=== PATIENT | male | born 1945 | race Caucasian/White ===

== ENCOUNTER 2016-08-16 23:51 | Observation (INO) | payer OTHER ==
[~2016-08-16] VITALS: Ht 190.5 cm; Wt 120.2 kg
--- NOTE | ~2016-08-16 | O ---
[facility] [place] [address] OPERATIVE REPORT Name: SADE MAYER Room #: 537-P [facility] Baltazar#: [id number] Admission: 08/17/16 Attend Phys: Ivonne Snider MD, Discharge: 08/18/16 Date of : 49 Report #: [id number] THIS REPORT FOR: //name// CC: Pasquale Snider DATE OF SERVICE: 08/17/2016 PREOPERATIVE DIAGNOSIS: Acute appendicitis. POSTOPERATIVE DIAGNOSIS: Acute appendicitis. PROCEDURE: Laparoscopic appendectomy. ANESTHESIA: General endotracheal anesthesia. ESTIMATED BLOOD LOSS: 5 mL. IV FLUIDS: 1200 mL of Crystalloid. SPECIMENS TO PATHOLOGY: Appendix. FINDINGS: Acute appendicitis, nonperforated, intense inflammatory response in the right lower quadrant. DRAINS PLACED: None. INDICATION FOR PROCEDURE: The patient is a very pleasant 70-year-old gentleman with history of lower abdominal pain. Workup and clinical exam were consistent with acute appendicitis. General surgery was therefore consulted for surgical intervention. Detailed discussion of the risks and benefits of appendectomy was held with the patient. All questions were answered to the patient's satisfaction. Written informed consent was obtained. DESCRIPTION OF PROCEDURE: The patient was brought to the operating room and placed in a supine position. Timeout was taken to verify the patient's identity and to plan the procedure. SCDs were in place on the lower extremities bilaterally. Preoperative antibiotics were administered. Anesthesia was induced. The patient was intubated. Abdomen was sterilely prepped and draped in standard fashion. Left lower quadrant incision was made after local anesthetic had been infiltrated. A 5-mm direct visual insertion technique was utilized with a 5 mm 0-degree laparoscope. Pneumoperitoneum was created. Inspection of the viscera showed that no injury had occurred upon entry. A 12-mm supraumbilical port was placed under direct visualization and a 5-mm suprapubic port placed under direct visualization after local anesthetic had [address] [address] OPERATIVE REPORT Name: SADE MAYER Konrad [id number] Admission: 08/17/16 Attend Phys: Ivonne Snider MD, Discharge: 08/18/16 Date of : 49 Report #: [id number] been infiltrated into each of these sites. The patient was placed in the Trendelenburg, right side up position. Right lower quadrant structures were examined. The appendix was noted to be significantly inflamed with adhesion of small bowel and omentum around this region. This was carefully dissected apart with blunt dissector and Sonicision energy device. The appendix was then identified and base of the appendix was carefully dissected out. A window was created in the base of the mesoappendix. The mesoappendix was also noted to be considerably edematous and thickened. The base of the appendix was transected with a linear cutting stapler with an [place] 45-mm blue load 1 firing. The mesoappendix was then transected using a 45-mm white load linear cutting stapler. The appendix was then passed into an EndoCatch bag and removed from the 12-mm port site. Reinspection of the cecum showed that the transection site was well intact. There was scant oozing at one edge and this was controlled using Crow. ____ was draped over this site. It should also be noted that prior to placement of the Crow, the right lower quadrant was irrigated with sterile saline and suctioned clear. Camera was switched to a 5-mm 30-degree laparoscope and the 12-mm port was removed. The fascia at the supraumbilical site was closed using [id number] 0 PDS suture under direct visualization with a PMI suture passer. Reinspection of the right lower quadrant structures were again examined and hemostasis was again verified. At this point, pneumoperitoneum was relieved. The 5 mm ports were extracted carefully. Local anesthetic was further infiltrated into each of the 3 port sites. Skin was closed at each of the 3 sites using 4-0 Monocryl subcuticular stitches. Dermabond was applied superficially at each of these 3 sites. At this point, the case was ended. All instrumentation had been extracted and accounted for. All counts were correct per nurse report. The patient was extubated and taken to the postoperative care unit in stable condition. By: [id number] Morgan Brady MD /aern
--- NOTE | ~2016-08-16 | S ---
[facility] [place] [address] SURGICAL PATH RPT PROCEDURE Name: SADE MAYER Konrad Room #: 537-P [facility] Nito Ledesma#: [id number] Admission: 08/17/16 Date of : 49 Discharge: 08/18/16 Report #: [id number] Path Case #: [id number] PATHOLOGY REPORT COLLECTION DATE: 08/17/2016 RECEIVED DATE: 08/18/2016 SUBMITTING PHYS: Dr. Morgan Brady OTHER PHYS: Dr. Pasquale Snider SPECIMEN(S) RECEIVED: A.Appendix * * * * * * * * * * * * FINAL DIAGNOSIS: Appendix, "appendix", appendectomy: - Acute suppurative appendicitis with acute inflammation extending into the periappendiceal fat with microabscess formation. (SHA:[facility]; d/t: 08/21/2016) PATHOLOGIST: Brad Crum M.D. REPORT ELECTRONICALLY SIGNED BY: Brad Crum M.D. DATE/TIME: 08/21/2016 14:13 * * * * * * * * * * * * GROSS PATHOLOGY: Received in formalin labeled "Moreno Sade and appendix," is an appendix measuring 6.2 cm in length and 1.2 cm in diameter with a moderate amount of attached mesoappendix. The serosal surface is pink-bill to dark red, dull, and displays multiple adhesions and white-bill exudate. Sectioning reveals a 0.8 cm in diameter lumen filled with red-bill and friable soft material. The mucosa is dark red and granular. The wall is uniform and measures 0.2 cm in thickness. Lokie Engineer sections are submitted as follows: A1 bisected distal tip and proximal resection margin A2-A3 sections from body of appendix (TTL; 08/18/2016) CLINICAL HISTORY: Appendicitis INITIAL CPT CODE(S): A; 34895 Professional services performed by [facility] at [facility] [address] [place] [address] SURGICAL PATH RPT PROCEDURE Name: MORENOSADE Konrad Room #: 537-P [facility] M.R.#: [id number] Admission: 08/17/16 Date of : 49 Discharge: 08/18/16 Report #: [id number] Path Case #: [id number] [address], [place] [address] Technical services performed by [facility] at [address] [place] [address], [facility] [address] [address]. [facility] [address] [place] [address] PHONE: [phone] DIRECTOR: Ricci Schwartz M.D. * * * END OF REPORT * * *
--- NOTE | ~2016-08-16 | HC ---
[facility] [place] [address] CONSULTATION Name: SADE MAYER Room #: 537-P [facility]#: [id number] Admission: 08/17/16 Attend Phys: Ivonne Snider MD, Discharge: Date of : 49 Report #: [id number] THIS REPORT FOR: //name// CC: Pasquale Snider DATE OF SERVICE: 08/17/2016 CHIEF COMPLAINT: Abdominal pain. HISTORY OF PRESENT ILLNESS: The patient was admitted through the Emergency Department. The patient is a very pleasant 70-year-old male patient with history of right lower abdominal pain which began yesterday evening, this was associated with nausea and dry heaves. His last bowel movement was yesterday morning. He has not passed flatus since that time. No melena or hematochezia. The patient does still have an appetite. He denied any fevers, chills or unwanted weight loss lately, no focal weakness or numbness. The pain became more pronounced and localized in the right lower quadrant throughout the night. PAST MEDICAL HISTORY: Positive for papillary thyroid cancer, status post total thyroidectomy with iodine radiation ablation greater than 20 years ago. He is now clinically hypothyroid and he is on Synthroid 200 mcg daily. MEDICATIONS: Synthroid 200 mcg daily, fluticasone, cetirizine, Lipitor, azelastine, losartan, aspirin 81 mg daily. ALLERGIES: No known drug allergies. SOCIAL HISTORY: Negative for tobacco or drug use, social ETOH only. REVIEW OF SYSTEMS: CONSTITUTIONAL: Negative for fevers, chills or unwanted weight loss. OCULAR: No diplopia or visual change. HEENT: Positive for seasonal allergies. Negative for dysphagia or odynophagia. Positive for history of thyroidectomy. PULMONARY: No productive cough, no shortness of breath. CARDIOVASCULAR: No chest pain or palpitation. GASTROINTESTINAL: Positive for abdominal pain, nausea and vomiting as described above. GENITOURINARY: Negative for dysuria, hesitancy, or urgency. MUSCULOSKELETAL: No back pain or joint swelling. CUTANEOUS: Negative for skin lesions or rashes. NEUROLOGIC: No focal weakness or numbness. ENDOCRINE: Positive for clinical hypothyroidism, status post thyroidectomy with iodine ablation. No heat or cold intolerance when he is on his medication. [address] [address] CONSULTATION Name: SADE MAYER Room #: 537-P [facility] Nito Ledesma#: [id number] Admission: 08/17/16 Attend Phys: Ivonne Snider MD, Discharge: Date of : 49 Report #: [id number] PHYSICAL EXAMINATION: GENERAL: On exam, the patient is afebrile and nontoxic. He is normotensive. He is awake, alert and oriented, does give appropriate history. He is fluent without dysarthria. HEAD: Atraumatic and normocephalic, well-healed thyroidectomy incision. NECK: Supple, without any obvious lymphadenopathy. Cranial nerves are intact and symmetric bilateral. Mucosae are pink and moist. No icterus is appreciated. LUNGS: Clear to auscultation bilateral. HEART: Regular without murmur. No jugular venous distention. ABDOMEN: Soft and nondistended. He is quite tender to palpation in the right lower quadrant with guarding. No abdominal surgical scars are appreciated. No obvious hernias are appreciated. EXTREMITIES: Without clubbing, cyanosis or edema. Extremities are well perfused with intact distal pulses. NEUROLOGIC: No focal deficits. The patient moves all extremities without focal weakness. PSYCHIATRIC: Shows normal mood and affect. LABORATORY DATA: Reviewed. Urinalysis in the Emergency Department was unremarkable. Complete metabolic profile showed a glucose of 126, lipase of 133, total bilirubin of 1, alkaline phosphatase 51, AST 26, ALT of 32, albumin of 4.1, creatinine of 1.1. Complete blood count showed a leukocytosis of 12.7, hemoglobin 13.6, platelets of 204, neutrophils 86%. CT scan of the abdomen and pelvis with contrast is reviewed along with the images. This demonstrates a dilated appendix, which is markedly distended and edematous, small amount of adjacent inflammation, no obvious free fluid or free air, greatest dimension of 14 mm per the appendix, cecum with moderate stool, mild diverticula without inflammation noted in the descending colon and small umbilical hernia was also noted. IMPRESSION AND PLAN: 1. A 70-year-old male patient with acute appendicitis. The patient has been admitted to General Surgery team. Plan to keep the patient on IV antibiotics, namely Zosyn 3.375 g scheduled q. 6 hours. 2. Plan for laparoscopic appendectomy today. Detailed discussion of risks and benefits of surgical intervention held with the patient and all questions were answered to the patient's satisfaction. Written informed consent was obtained. 3. Consultation very much appreciated. By: [id number] Morgan Brady MD /nt
[2016-08-16 23:52] VITALS: BP 120/75
[2016-08-17] MEDS ORDERED: AZELASTINE137 MCG/0. NS (00:06)
[2016-08-17] MEDS ORDERED: LEVOTHYROXINE0.2 M1 PO (00:06)
[2016-08-17] MEDS ORDERED: COZAAR 50 MG TA50 M2 PO (00:07)
[2016-08-17] MEDS ORDERED: FLONASE 0.05%50 MCG NASAL (00:07)
[2016-08-17] MEDS ORDERED: ASPIR 8181 MG PO (00:08)
[2016-08-17 00:24] LABS: HEMATOCRIT 38.9 % (42.0-52.0); HEMOGLOBIN 13.6 gm/dL (14.0-18.0); MCH 32.7 pg (26.0-34.0); MCV 93.4 fL (80.0-100.0); PLATELET COUNT 204 thou/uL (150-400); RBC 4.16 mil/uL (4.50-6.00); RDW 13.4 % (10.5-14.5); WBC 12.7 thou/uL (4.0-11.0)
[2016-08-17 00:33] LABS: MANUAL DIFF YES
[2016-08-17 00:33] LABS: URINE BILIRUBIN NEGATIVE (Negative); URINE BLOOD NEGATIVE (Negative); URINE COLOR YELLOW; URINE GLUCOSE-RANDOM* NEGATIVE (Negative); URINE KETONES NEGATIVE (Negative); URINE LEUKOCYTES-REFLEX NEGATIVE (Negative); URINE PROTEIN (DIPSTICK) NEGATIVE (Negative); URINE UROBILINOGEN 0.2 E.U./dl (0.2-1.0)
[2016-08-17 00:45] LABS: ALBUMIN 4.1 g/dL (3.4-5.0); CALCIUM 8.7 mg/dL (8.5-10.1); CREATININE 1.1 mg/dL (0.7-1.3); TOTAL PROTEIN 6.9 g/dL (6.4-8.2)
[2016-08-17 01:48] LABS: ABSOLUTE NEUTROPHILS 10.9 thou/uL (1.4-8.2); TOTAL CELL COUNT 100
[2016-08-17 02:37] VITALS: BP 132/80
[2016-08-17 02:48] VITALS: BP 119/88
[2016-08-17] MEDS ORDERED: ZYRTEC10 M4 PO (02:54)
[2016-08-17] MEDS ORDERED: LEVOTHYROXINE 0.1 MG PO (03:01)
[2016-08-17] MEDS ORDERED: LIPITOR 20 MG T20 M1 PO (03:04)
[2016-08-17] MEDS ORDERED: CALCIUM CITRAT1 EAC7 PO (03:06)
[2016-08-17] MEDS ORDERED: VITAMINC500 PO (03:07)
[2016-08-17] MEDS ORDERED: FISH OIL 1,001000 M2 PO (03:08)
[2016-08-17] MEDS ORDERED: GLUCOSAMINE HC500 MG PO (03:09)
[2016-08-17] MEDS ORDERED: CHONDROITIN SU250 MG PO (03:11)
[2016-08-17] MEDS ORDERED: CENTRUM SILVER1 EAC4 PO (03:12)
[2016-08-17] MEDS ORDERED: D3 DOTS2000 UNIT PO (03:13)
[2016-08-17 07:10] VITALS: BP 100/62
[2016-08-17 12:50] VITALS: BP 106/65
[2016-08-17 19:45] VITALS: BP 122/74
[2016-08-17 23:35] VITALS: BP 96/55
[2016-08-18 04:00] VITALS: BP 143/77; BP 146/87
[2016-08-18 06:20] LABS: HEMATOCRIT 36.8 % (42.0-52.0); HEMOGLOBIN 12.8 gm/dL (14.0-18.0); MCH 32.8 pg (26.0-34.0); MCHC 34.8 g/dL (28.0-37.0); MCV 94.3 fL (80.0-100.0); PLATELET COUNT 185 thou/uL (150-400); RBC 3.91 mil/uL (4.50-6.00); RDW 13.5 % (10.5-14.5); WBC 11.2 thou/uL (4.0-11.0)
[2016-08-18 06:21] LABS: MANUAL DIFF YES
[2016-08-18 06:42] LABS: ALBUMIN 3.5 g/dL (3.4-5.0); CALCIUM 8.6 mg/dL (8.5-10.1); CREATININE 1.3 mg/dL (0.7-1.3); MAGNESIUM 2.1 mg/dL (1.8-2.4); PHOSPHORUS 3.5 mg/dL (2.5-4.9); TOTAL PROTEIN 7.1 g/dL (6.4-8.2)
[2016-08-18 07:30] VITALS: BP 118/72
[2016-08-18 08:11] LABS: ABSOLUTE NEUTROPHILS 9.7 thou/uL (1.4-8.2); TOTAL CELL COUNT 100
[2016-08-18 08:12] LABS: ANISOCYTOSIS SLIGHT
[2016-08-18] MEDS ORDERED: COLACE100 MG PO (10:13)
[2016-08-18] MEDS ORDERED: HYDROCODONE-AP1 EAC6 PO (10:13)
[2016-08-18 10:28] VITALS: BP 118/72
== END 2016-08-18 14:00 | disposition home or self-care (01) ==
LOC: ER 23:51 → 5S 08-17 02:09 → EROBS 08-17 02:09 → 5S 08-17 02:36
PROVIDERS: Emergency Medicine; Otolaryngology
DX: K35.80 Unspecified acute appendicitis (principal); I10 Essential (primary) hypertension; M47.9 Spondylosis, unspecified; N42.89 Other specified disorders of prostate; N28.1 Cyst of kidney, acquired; F10.21 Alcohol dependence, in remission; Z87.891 Personal history of nicotine dependence
CPT/HCPCS: 50010; 50101; 50249; 50411; 50455; 50555; 50558; 50739; 50740; 50900; 50962; 51975; 52265; 52287; 53307; 54022; 54118; 56525; 56526; 62110; 62900; 70005